=== PATIENT | female | born 1960 | race American Indian/Alaskan Native ===

== ENCOUNTER 2021-10-08 23:58 | Emergency (ER) | payer SELFPAY ==
--- NOTE | 2021-10-09 06:37 | Emergency Department Report ---
ED Asthma HPI - General Stated Complaint: WHEEZING Time Seen by Provider: 10/09/21 03:25 - History of Present Illness Initial Comments: 60-year-old female with a history of asthma brought in by EMS with asthma attack that started last night. Patient reported that it was given to breathing treatment by EMS and route with improvement in symptoms. By the time I saw this patient all her symptoms have been resolved. She however requested for albuterol and anything else that can help her symptoms at home. Patient denies any cough, chest pain, shortness of breath, or palpitation. Patient denies any other modifying or positive factors. - Related Data Previous Rx's Medication Instructions Recorded Last Taken Type Albuterol Mdi (or & Nicu Only) 2 puff IH QID PRN #8.5 gram 10/09/21 Unknown Rx [ProAir HFA Inhaler] predniSONE [Deltasone] 40 mg PO QDAY 5 Days #10 tab 10/09/21 Unknown Rx Allergies Allergy/AdvReac Type Severity Reaction Status Date / Time No Known Allergies Allergy Unverified 10/09/21 01:14 ED Review of Systems ROS: Stated complaint: WHEEZING Other details as noted in HPI Comment: All other systems reviewed and negative Respiratory: shortness of breath, wheezing ED Past Medical Hx - Medications Home Medications: Home Medications Medication Instructions Recorded Confirmed Last Taken Type Albuterol Mdi (or & Nicu Only) 2 puff IH QID PRN #8.5 gram 10/09/21 Unknown Rx [ProAir HFA Inhaler] predniSONE [Deltasone] 40 mg PO QDAY 5 Days #10 tab 10/09/21 Unknown Rx ED Physical Exam - General Limitations: No Limitations General appearance: alert, in no apparent distress - Head Head exam: Present: normal inspection - Eye Eye exam: Present: normal appearance - ENT ENT exam: Present: normal exam, normal orophraynx, mucous membranes moist - Neck Neck exam: Present: normal inspection, full ROM - Respiratory Respiratory exam: Present: normal lung sounds bilaterally. Absent: respiratory distress - Cardiovascular Cardiovascular Exam: Present: regular rate, normal rhythm, normal heart sounds - GI/Abdominal GI/Abdominal exam: Present: soft, normal bowel sounds. Absent: tenderness - Extremities Exam Extremities exam: Present: normal inspection, full ROM, normal capillary refill - Back Exam Back exam: Present: normal inspection - Neurological Exam Neurological exam: Present: alert, oriented X3 - Psychiatric Psychiatric exam: Present: normal affect, normal mood - Skin Skin exam: Present: warm, normal color ED Course Vital Signs 10/09/21 10/09/21 10/09/21 00:16 00:31 00:45 Pulse Rate 85 84 Respiratory 13 17 18 Rate Blood Pressure 111/71 111/71 O2 Sat by Pulse 99 96 95 Oximetry 10/09/21 10/09/21 10/09/21 01:01 01:15 01:31 Pulse Rate 87 89 86 Respiratory 17 17 18 Rate Blood Pressure 105/69 105/69 109/77 O2 Sat by Pulse 96 98 96 Oximetry 10/09/21 10/09/21 10/09/21 01:45 02:01 02:15 Pulse Rate 85 86 84 Respiratory 17 18 15 Rate Blood Pressure 109/77 105/75 105/75 O2 Sat by Pulse 96 96 96 Oximetry 10/09/21 10/09/21 10/09/21 02:31 02:45 03:01 Pulse Rate 87 84 96 H Respiratory 17 18 15 Rate Blood Pressure 111/79 111/79 119/83 O2 Sat by Pulse 97 97 97 Oximetry 10/09/21 10/09/21 10/09/21 03:15 03:31 03:45 Pulse Rate 71 77 75 Respiratory 17 17 18 Rate Blood Pressure 119/83 105/68 105/68 O2 Sat by Pulse 97 97 97 Oximetry 10/09/21 10/09/21 10/09/21 04:01 04:15 04:31 Pulse Rate 72 73 78 Respiratory 17 16 16 Rate Blood Pressure 116/76 116/76 130/89 O2 Sat by Pulse 97 97 97 Oximetry 10/09/21 10/09/21 10/09/21 04:45 05:01 05:15 Pulse Rate 77 80 84 Respiratory 17 17 17 Rate Blood Pressure 130/89 112/88 112/88 O2 Sat by Pulse 97 97 96 Oximetry 10/09/21 10/09/21 10/09/21 05:31 05:45 06:01 Pulse Rate 85 87 85 Respiratory 17 18 19 Rate Blood Pressure 112/80 112/80 115/78 O2 Sat by Pulse 95 96 97 Oximetry 10/09/21 10/09/21 10/09/21 06:15 06:31 06:40 Pulse Rate 77 81 Respiratory 16 18 18 Rate Blood Pressure 115/78 128/108 O2 Sat by Pulse 97 96 97 Oximetry - Reevaluation(s) Reevaluation #1: 10/09/21 06:35 Here with asthma attack is improved with 2 breathing treatment by EMS before getting to the emergency room--patient is requesting for home treatment so she will be discharged with albuterol and short course of prednisone for 5 days with close follow-up with her primary doctor. Critical care attestation.: If time is entered above; I have spent that time in minutes in the direct care of this critically ill patient, excluding procedure time. ED Disposition Clinical Impression: Asthma attack Qualifiers: Asthma severity: unspecified severity Asthma persistence: unspecified Qualified Code(s): J45.901 - Unspecified asthma with (acute) exacerbation Disposition: HOME / SELF CARE / HOMELESS Is pt being admited?: No Does the pt Need Aspirin: No Condition: Stable Instructions: Asthma, Adult, [id number], Asthma Attack Prevention, Adult, Asthma and Physical Activity Additional Instructions: Use your prednisone as prescribed to continue to help your symptoms : Follow-up with your primary doctor in the next 3 to 5 days for progress Do not hesitate to call or return to emergency room if your symptoms worsen Prescriptions: predniSONE [Deltasone] 40 mg PO QDAY 5 Days #10 tab Albuterol Mdi (or & Nicu Only) [ProAir HFA Inhaler] 2 puff IH QID PRN #8.5 gram PRN Reason: Shortness Of Breath Referrals: PRIMARY CARE, [Primary Care Provider] - 3-5 Days Time of Disposition: 06:37
[2021-10-09 06:40] VITALS: BP 128/108
== END 2021-10-09 06:59 | disposition home or self-care (01) ==
LOC: ED 23:58
DX: J45.909 Unspecified asthma, uncomplicated (principal)
CPT/HCPCS: 99283